=== PATIENT | male | born 1970 | race Caucasian/White ===

== ENCOUNTER 2018-07-21 10:39 | Day surgery (SDC) | payer OTHER ==
[~2018-07-21] VITALS: Ht 182.9 cm; Wt 88.0 kg
[2018-07-21] MEDS ORDERED: AMIT25 PO (11:11)
[2018-07-21] MEDS ORDERED: MELA3 PO (11:11)
== END 2018-07-21 12:00 | disposition home or self-care (01) ==
LOC: ORSCMMR 10:39 → ORD 11:30 → ORSCMMR 11:30
PROVIDERS: Internal Medicine Gastroenterology
PROC: 0DBN8ZX Excision of Sigmoid Colon, Via Natural or Artificial Opening Endoscopic, Diagnostic (ICD-10-PCS; principal; 2018-07-21 11:30)
DX: Z12.11 Encounter for screening for malignant neoplasm of colon (principal); K63.5 Polyp of colon; L30.8 Other specified dermatitis; I10 Essential (primary) hypertension; K21.9 Gastro-esophageal reflux disease without esophagitis; G47.419 Narcolepsy without cataplexy; Z79.899 Other long term (current) drug therapy
CPT/HCPCS: 88305; J7120

== ENCOUNTER → 2020-01-10 | Outpatient (CLI) | payer OTHER ==
[~2020-01-10] MED LIST: AMIT25 PO; MELA3 PO
== END | disposition home or self-care (01) ==
LOC: LAB SHORT 15:18 → LAB 15:18
DX: R10.13 Epigastric pain (principal)
CPT/HCPCS: 87338